=== PATIENT | female | born 1970 | race Two or more races ===

== ENCOUNTER 2024-07-31 10:02 | Emergency (ER) | payer MEDICAID, SELFPAY ==
[2024-07-31 10:03] VITALS: BMI 32.8
[2024-07-31 10:09] VITALS: BP 117/75; PULSE 76; RESP 18; TEMP 36.8; O2SAT 98; BMI 31.5
[2024-07-31 10:59] LABS: Collection Type, Urine Clean Catch
[2024-07-31 11:31] LABS: Bilirubin,Urine Negative (Negative); Blood,Urine 3+ (Negative); Clarity,Urine Turbid (Clear/Hazy); Color,Urine Lt-Yellow (Lt Yel-Yel); Glucose, Urine Negative (Negative); Ketones,Urine Negative (Negative); Leukocyte Esterase,Urine Positive (Negative); Nitrite,Urine Negative (Negative); Protein,Urine Negative (Neg - Trace); RBC,Urine 5 /hpf (0-3); Specific Gravity,Urine 1.008 (1.001-1.035); Squamous Epithelial Cell,Urine 1 /hpf (0-5); Urobilinogen,Urine Negative mg/dL (0.0-1.0); WBC,Urine 159 /hpf (0-5)
[2024-07-31 11:37] LABS: Culture Indicated,Urine Yes
--- NOTE | 2024-07-31 11:44 | EDNOTE_ITS ---
<Statement entered by Susy Phelps MD - 08/02/24 12:05> As co-signing physician, I was present and available for consult prn. I concur with the plan and care as documented by the midlevel provider. ED Female Urogenital RME/HPI General Chief complaint: Urogenital-Female Stated complaint: Pain with urination x 1 day, No flank pain Time Seen by Provider: 07/31/24 10:06 Arrival date/time: 07/31/24 10:02 53-year-old female with history of UTIs and kidney stones presents to the emerg ency department today complains of a 1 day history of dysuria patient reports no flank pain back pain nausea or vomiting Limitations: no limitations Related Data Previous Rx's ?Medication ?Instructions ?Recorded hydrocodone 5 mg-acetaminophen 325 1 tab PO TID PRN pa in #8 tabs 08/22/22 mg tablet ibuprofen 600 mg tablet 600 mg PO TID PRN pain #14 t abs 08/22/22 ciprofloxacin HCl 500 mg tablet 500 mg PO BID 7 days # 14 tabs 07/31/24 Allergies Allergy/AdvReac Type Severity Reaction Status Date / Time No Known Allergies Allergy Verified 07/30/22 01:01 Review of Systems Review of Systems Systems Reviewed: All systems reviewed, normal except as documented Constitutional Constitutional: Reports system reviewed and no additional complaints, except as documented, Denies fever(s) and Denies headache(s) Eyes Eyes: Reports system reviewed and no additional complaints, except as documented and Denies blurry vision ENT Ears, Nose, Mouth, and Throat: Reports system reviewed and no additional complaints, except as documented, Denies headache(s), Denies nasal congestion and Denies nasal discharge Cardiovascular Cardiovascular: Reports system reviewed and no additional complaints, except as documented, Denies chest pain and Denies dyspnea Respiratory Respiratory: Reports system reviewed and no additional complaints, except as documented, Denies chest congestion, Denies cough and Denies dyspnea Gastrointestinal Gastrointestinal: Reports system reviewed and no additional complaints, except as documented and Denies abdominal pain Genitourinary Genitourinary: Reports system reviewed and no additional complaints, except as documented, Reports dysuria and Denies flank pain Integumentary/Breasts Skin/Breast: Reports system reviewed and no additional complaints, except as documented and Denies rash Neurologic Neurologic: Reports system reviewed and no additional complaints, except as documented, Reports as per HPI and Denies headache(s) Past Medical History Past Medical History CARDIAC: Negative Congestive Heart Failure RESPIRATORY: Negative Chronic Obstructive Pulmonary Disease (COPD) GENITOURINARY: Negative Renal Disease ENDOCRINE: Negative Diabetes Mellitus Type 1 or Diabetes Mellitus Type 2 Social History SMOKING STATUS: Never smoker ED Exam General Limitations: Present no limitations General appearance: Present alert and in no apparent distress Head Head exam: Present atraumatic, normocephalic and normal inspection Eye Eye exam: Present normal appearance, PERRL and EOMI; Absent conjunctival injection ENT ENT exam: Present normal exam, normal oropharynx and mucous membranes moist Neck Neck exam: Present normal inspection, full ROM and trachea midline Chest Chest inspection: Present normal inspection and symmetric chest wall rise Respiratory Respiratory exam: Present normal lung sounds bilaterally; Absent respiratory distress Cardiovascular Cardiovascular exam: Present regular rate, normal rhythm and normal heart sounds Abdominal Exam Abdominal exam: Present soft, normal bowel sounds and other (No flank pain); Absent distention, tenderness, guarding, rebound or rigidity Extremities Exam Extremities exam: Present normal inspection and full ROM Back Exam Back exam: Present normal inspection and full ROM; Absent CVA tenderness (R) or CVA tenderness (L) Neurological Exam Neurological exam: Present alert, oriented X3, CN II-XII intact, normal gait and reflexes normal; Absent motor sensory deficit Psychiatric Psychiatric exam: Present normal affect and normal mood Skin Skin exam: Present warm, dry, intact and normal color; Absent rash Course Quality Measures none Orders Category Date Time Status UA, C/S IF [Urinalysis, C/S if Indicated] Stat Lab 07/31/24 10:37 Completed Urine Culture Stat Lab 07/31/24 10:37 Received Lidocaine 1% 20 ml [Xylocaine 1% 20 ML] Med 07/31/24 11:44 Discontinued 2.1 ml INFL X1 ONE cefTRIAXone [Rocephin] Med 07/31/24 11:44 Discontinued 1,000 mg IM X1 ONE Vital Signs Vital signs: Vital Signs Temperature 98.3 F 07/31/24 10:09 Pulse Rate 76 07/31/24 10:09 Respiratory Rate 18 07/31/24 10:09 Blood Pressure 117/75 07/31/24 10:09 Pulse Oximetry (%) 98 07/31/24 10:09 Oxygen Delivery Method Room Air 07/31/24 10:09 O2 saturation 98% room air within normal limits Urogenital - Female MDM Narrative MDM Narrative:: 53-year-old female with history of UTIs and kidney stones presents to the emergency department today complains of a 1 day history of dysuria patient reports no flank pain back pain nausea or vomiting Patient reports that she has a history of infection she wants to make sure she gets ahead of it. UA obtained patient urinalysis consistent with UTI patient given Rocephin Patient discharged home in no distress to follow-up with primary care doctor in the next 24 to 48 hours and for any worsening symptoms to return to the ER immediately Patient data External records reviewed:: [facility] previous records Clinical information provided by:: patient Social determinants that could affect healthcare access:: none Patient has the following chronic illnesses:: See history How is presenting disease/condition affected by chronic disease/condition?: caused by Evaluation data The following diagnostics were reviewed and interpreted by me:: lab results Lab and/or radiology exams considered but not ordered:: Lab obtained Interpretation Summary: Reviewed by me Medications / Prescriptions Medications or Prescriptions considered but not ordered:: Given Medication administrations:: Medication Administration History Discontinued Medications Ceftriaxone Sodium (Ceftriaxone Sod Inj 1,000 Mg Vial) 1,000 mg IM X1 ONE Stop: 07/31/24 11:45 Last Admin: 07/31/24 11:55 Dose: 1,000 mg Documented By: VILLA Lidocaine HCl (Lidocaine Hcl 1% 20 Ml Vial) 2.1 ml INFL X1 ONE Stop: 07/31/24 11:45 Last Admin: 07/31/24 11:55 Dose: 2.1 ml Documented By: VILLA Comments: TO RECONSTITUTE ROCEPHIN Given Consultations Consultation(s) initiated? (list below): No Diagnosis Urogenital Female Differential Diagnosis: urinary tract infection and cystitis Most likely diagnosis given after review of the tests above:: UTI Admission Indicated Admission indicated?: not indicated Admission Request Was there a request for admission?: No Disposition Plan Disposition Plan: Discharge Discharge Attestation Discharge Attestation: The patient and all family members were given an opportunity to ask questions and understood the discharge instructions. Discharge instructions specifically effects, indications for sooner follow up or return to the emergency department, and the expected course of current diagnosis. Patient condition: Stable Discharge Plan Plan Patient Disposition: HOME (Self Care) Disposition Comment: Stable Prescriptions/Referrals Prescriptions/Med Rec: New ciprofloxacin HCl 500 mg tablet 500 mg PO BID 7 Days Qty: 14 0RF No Action hydrocodone-acetaminophen 5-325 mg tablet 1 tab PO TID MDD 3 PRN (Reason: pain) Qty: 8 0RF ibuprofen 600 mg tablet 600 mg PO TID PRN (Reason: pain) Qty: 14 0RF Referrals: No Primary/Family,Physician [Primary Care Provider] - 08/03/24 Problem List Clinical Impression: Urinary tract infection Patient/Caregiver Discharge Instructions Education Materials: Urinary Tract Infections in Women, Understanding Urinary Tract ... Additional Instructions: Please follow up with your primary care doctor in the next 24-48hrs for any worsening symptoms return here immediately Print Language: Niuean Stand Alone Forms: Yady Award Info., Patient Portal Info Letter PA/CAMP TENDER Supervising Physician PA/CAMP TENDER Supervising Physician: Dr. Phelps
[2024-07-31] MEDS: cefTRIAXone SOD INJ 1,000 MG VIAL 1000 MG IM (11:55)
[2024-07-31] MEDS: LIDOCAINE HCL 1% 20 ML VIAL 2.1 ML INFL (11:55)
[2024-07-31 12:17] VITALS: BP 111/69; PULSE 70; RESP 17; TEMP 36.6; O2SAT 96
== END 2024-07-31 12:23 | disposition home or self-care (01) ==
PROVIDERS: Nurse Practitioner Primary Care; Emergency Provider Emergency Medicine
DX: N39.0 Urinary tract infection, site not specified (principal); Z87.440 Personal history of urinary (tract) infections; Z87.442 Personal history of urinary calculi
CPT/HCPCS: 81001; 87086; 96372; 99283; J0696; J3490